=== PATIENT | female | born 1980 | race American Indian/Alaskan Native ===

== ENCOUNTER 2022-01-11 21:43 | Emergency (ER) | payer MEDICAID ==
[2022-01-12 01:01] LABS: Bacteria,Urine 1+ /HPF (Negative); Bilirubin,Urine NEG (Negative); Blood,Urine SM (Negative); Color,Urine Yellow (Yellow); Mucus,Urine FEW /HPF; Protein,Urine <15 mg/dL mg/dL (Negative); Urobilinogen,Urine < 2.0 mg/dL (<2.0)
[2022-01-12] MEDS ORDERED: cefTRIAXone/NS 2 GM/100 ML 2 GM/100 ML BAG IV ONE (01:40)
[2022-01-12] MEDS ORDERED: SODIUM CHLORIDE 0.9% 1000 ML 1,000 ML IV ONE (01:47)
--- NOTE | 2022-01-12 01:48 | Emergency Department Report ---
HPI - General Chief Complaint: Abdominal Pain Time Seen by Provider: 01/12/22 01:21 - HPI HPI: 41-year-old female with history of pulmonary embolism on Eliquis presents complaining of 2 days of dysuria and urinary frequency as well as suprapubic pre ssure. She also reports that she has been having vaginal spotting for the last several months in the form of blood seen on tissue when wiping after urination. Her last known menstrual period was on October 162020. There are no known aggravating or alleviating factors. She has not tried anything for these symptoms. She denies any associated headache, fever, vision change, neck pain, chest pain, shortness of breath, cough, nausea/vomiting, vaginal discharge, significant vaginal bleeding, back pain, hematuria, focal weakness, sensory changes, lower extremity swelling/pain, or any other complaints ED Past Medical Hx - Past Medical History Previous Medical History?: Yes Hx Pulmonary Embolism: Yes (On eliquis) - Medications Home Medications: Home Medications Medication Instructions Recorded Confirmed Last Taken Type Cefpodoxime Proxetil 100 mg PO BID #14 01/12/22 Unknown Rx Phenazopyridine [Pyridium] 100 mg PO TID #6 tab 01/12/22 Unknown Rx ED Review of Systems ROS: Stated complaint: SEVERE ABD PAIN Other details as noted in HPI Comment: All other systems reviewed and negative Constitutional: denies: chills, fever Eyes: denies: eye pain, vision change ENT: denies: throat pain, congestion Respiratory: denies: cough, shortness of breath Cardiovascular: denies: chest pain, palpitations, edema Gastrointestinal: other (suprapubic fullness). denies: abdominal pain, nausea, vomiting, diarrhea, constipation Genitourinary: dysuria, frequency, other (vaginal spotting x several months). denies: hematuria, discharge Musculoskeletal: denies: back pain, joint swelling Skin: denies: rash, lesions Neurological: denies: headache, weakness, numbness Physical Exam - Physical Exam Vital Signs: Vital Signs 01/12/22 01/12/22 01/12/22 00:05 00:44 00:56 Temperature 97.9 F Pulse Rate 75 75 67 Respiratory 15 16 17 Rate Blood Pressure 90/58 108/67 108/67 [Right] O2 Sat by Pulse 100 100 100 Oximetry Physical Exam: GENERAL: Well developed and well nourished. No acute distress HEAD: Normocephalic. No obvious signs of trauma. ENT: Moist mucous membranes. EYES: Extraocular movements are intact. Pupils are equal round and reactive to light bilaterally NECK: Supple. Full ROM is intact. Trachea is midline. LUNGS: Nonlabored breathing. Equal chest rise bilaterally. Clear to auscultation bilaterally. CARDIOVASCULAR: Regular rate and rhythm. No murmurs or rubs. VASCULAR: Cap refill < 2 seconds ABDOMEN: Abdomen is soft and nondistended. There is no significant tenderness, guarding or rebound. SKIN: Skin is warm and dry NEURO: Patient is awake, alert, and oriented. shipping processor II-XII grossly intact. No focal deficits. Normal motor and sensory exam throughout. Normal speech. MUSCULOSKELETAL: No obvious deformities. No significant tenderness. Normal ROM throughout. BACK/SPINE: No costovertebral angle tenderness. ED Course Vital Signs 01/12/22 01/12/22 01/12/22 00:05 00:44 00:56 Temperature 97.9 F Pulse Rate 75 75 67 Respiratory 15 16 17 Rate Blood Pressure 90/58 108/67 108/67 [Right] O2 Sat by Pulse 100 100 100 Oximetry ED Medical Decision Making - Lab Data Result diagrams: 01/12/22 01:44 01/12/22 01:44 - Radiology Data Radiology results: report reviewed - Medical Decision Making 41-year-old female with history of PE on Eliquis presenting with 2 days of dysuria/frequency and suprapubic pressure. On initial assessment she is afebrile and with normal vital signs but with blood pressure of 90/58 which improved to 108/67 on repeat measurement. On physical examination, she is in no acute distress and has no abdominal tenderness and no CVA tenderness. No tenderness in the suprapubic region or bilateral lower quadrants over the next. We will send a full set of labs including and urinalysis and give 1 L of IV fluids. Labs reveal no significant leukocytosis and mild anemia with hemoglobin of 9.2. Kidney function is normal and there is mild hypokalemia with potassium 3.5 which we will replete. Urinalysis reveals findings consistent with urinary tract infection. We will give 1 dose of ceftriaxone. Urine test has come back positive. I have therefore ordered a serum hCG quant and Rh typing as well as OB/pelvic ultrasound. Patient was told about the positive result and the subsequent plan of care and expressed understanding and agreement. Quantitative serum hCG test is negative. Suspect false positive urine test. Nonetheless we will continue with pelvic ultrasound which was ordered. Pelvic ultrasound reveals bilateral ovarian blood flow although the right ovary itself is spared by bowel gas. On repeat assessment at 7:40 PM, the patient is resting comfortably. She reports no significant symptoms during her stay in the emergency room. Given that the patient's symptoms are consistent with urinary tract infection and she has no right lower quadrant or right adnexal tenderness I feel that she is appropriate for discharge on antibiotics with HYDROPONICS WORKER follow-up as needed. The patient herself agrees and wants to go home and then follow-up. She was given strict return precautions. Critical care attestation.: If time is entered above; I have spent that time in minutes in the direct care of this critically ill patient, excluding procedure time. ED Disposition Clinical Impression: UTI (urinary tract infection), Cystitis, Ovarian cyst Disposition: 01 HOME / SELF CARE / HOMELESS Is pt being admited?: No Condition: Stable Instructions: Urinary Tract Infection, Adult, Ovarian Cyst, Abdominal Pain (ED) Additional Instructions: You should follow-up with your primary care doctor or HYDROPONICS WORKER over the next several days. Return to the emergency department for any significant worsening symptoms, significant nonmenstrual vaginal bleeding, high fever, nausea/vomiting, or any other new health concerns. Prescriptions: Cefpodoxime Proxetil 100 mg PO BID #14 Phenazopyridine [Pyridium] 100 mg PO TID #6 tab Referrals: ARLENE MINER MD [Staff Physician] - 3-5 Days [facility] [Provider Group] - 3-5 Days
[2022-01-12 02:11] LABS: Basophils % (Auto) 0.7 % (0.0-1.8); Eosinophils % (Auto) 0.9 % (0.0-4.3); Hemoglobin 9.2 gm/dl (10.1-14.3); Lymphocytes # (Auto) 1.7 K/mm3 (1.2-5.4); Lymphocytes % (Auto) 37.1 % (13.4-35.0); Mean Corpuscular HGB Conc 31 % (30-34); Mean Corpuscular Volume 77 fl (79-97); Monocytes # (Auto) 0.4 K/mm3 (0.0-0.8); Monocytes % (Auto) 9.3 % (0.0-7.3); Platelet Count 397 K/mm3 (140-440); Red Blood Count 3.88 M/mm3 (3.65-5.03); Red Cell Distribution Width 19.2 % (13.2-15.2)
[2022-01-12 02:23] LABS: Alanine Aminotransferase 36 units/L (7-56); Albumin 4.4 g/dL (3.9-5); Blood Urea Nitrogen 11 mg/dL (7-17); Calcium 9.5 mg/dL (8.4-10.2); Hemolysis Index 5
[2022-01-12 02:31] LABS: BUN/Creatinine Ratio 22; Bilirubin,Direct < 0.2 mg/dL (0-0.2)
[2022-01-12 02:49] LABS: HCG Qualitative,Urine Positive (Negative)
[2022-01-12] MEDS ORDERED: POTASSIUM CHLORIDE ER 20 MEQ TAB PO ONE (03:50)
[2022-01-12 04:22] LABS: INR 0.85 (0.87-1.13)
[2022-01-12 04:23] LABS: Partial Thromboplastin Time 27.3 Sec. (24.2-36.6)
[2022-01-12] MEDS ORDERED: IBUPROFEN 600 MG TAB PO ONE (07:09)
[2022-01-12] MEDS ORDERED: PHENAZOPYRIDINE 200 MG TAB PO ONE (07:09)
--- NOTE | 2022-01-12 07:35 | Ultrasound Report ---
ULTRASOUND PELVIS INDICATION / CLINICAL INFORMATION: SPOTTING. TECHNIQUE: Transabdominal. Duplex Color Doppler used: Yes. COMPARISON: None available FINDINGS: UTERUS: The uterus measures 10.3 x 6.4 x 5.9 cm. Endometrial stripe is 19 mm in thickness. RIGHT ADNEXA: Not identified. LEFT ADNEXA: 3.2 x 2.9 x 3.0 cm. Normal color Doppler blood flow. Small left ovarian cysts, the large st measuring 2.2 x 1.4 x 1.8 cm. URINARY BLADDER: No significant abnormality. FREE FLUID: None. ADDITIONAL FINDINGS: None. IMPRESSION: 1. Right ovary not identified secondary to bowel gas. Left ovary demonstrates small simple appearing cysts, the largest measuring 2.2 x 1.4 x 1.8 cm. 2. Bilateral blood flow within the ovaries. 3. Nonspecific minimal thickening of the endometrial stripe. Signer Name: Joselo Gonzales II, MD Signed: 01/12/2022 7:30 AM Workstation Name: [id number]
[2022-01-12 07:44] VITALS: BP 110/77
== END 2022-01-12 08:16 | disposition home or self-care (01) ==
LOC: ED 21:43
DX: N39.0 Urinary tract infection, site not specified (principal); N83.209 Unspecified ovarian cyst, unspecified side
CPT/HCPCS: 36415; 76856; 80048; 80076; 81001; 81025; 83735; 84702; 84703; 85025; 85610; 85730; 86900; 86901; 87086; 96365; 99284; J0696; J7030; Q0162

== ENCOUNTER 2022-03-01 20:24 | Emergency (ER) | payer MEDICAID ==
[2022-03-01 20:43] VITALS: BP 123/86
--- NOTE | 2022-03-01 23:04 | Emergency Department Report ---
<JEFFERSON RIVERS - Last Filed: 03/01/22 23:04> ED Female HPI - General Chief complaint: Vaginal Bleeding Stated complaint: VAGINAL BLEEDING/MISCARRIAGE Time Seen by Provider: 03/01/22 22:00 Source: patient Mode of arrival: Ambulatory Limitations: No Limitations - History of Present Illness Initial comments: 41-year-old female presents to the hospital with complaints of persistent bleeding after miscarriage. 6 days ago on February 23 while in [place] patient miscarried a fully formed fetus. Patient did not receive any care and did not know her gestational age at time of miscarriage. Since miscarriage patient has been using approximately 24 overnight pads a day and having intermittent suprapubic cramping abdominal pain radiating up to her belly and her chest. Patient also has a history of PE/DVT. 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 The second DVT was diagnosed August 2021 with a Covid diagnosis. Patient forgot to bring her Eliquis to [place] and therefore has been noncompliant for about a week and a half. Patient does not complain of calf tenderness, leg edema, pleuritic chest pain, or shortness of breath Patient was here earlier today but left and returned. Her lab results are under her previous visit - Related Data Previous Rx's Medication Instructions Recorded Last Taken Type Cefpodoxime Proxetil 100 mg PO BID #14 01/12/22 Unknown Rx Phenazopyridine [Pyridium] 100 mg PO TID #6 tab 01/12/22 Unknown Rx Allergies Allergy/AdvReac Type Severity Reaction Status Date / Time No Known Allergies Allergy Unverified 01/12/22 00:12 ED Review of Systems Comment: All other systems reviewed and negative ED Past Medical Hx - Past Medical History Hx Pulmonary Embolism: Yes (On eliquis) - Medications Home Medications: Home Medications Medication Instructions Recorded Confirmed Last Taken Type Cefpodoxime Proxetil 100 mg PO BID #14 01/12/22 Unknown Rx Phenazopyridine [Pyridium] 100 mg PO TID #6 tab 01/12/22 Unknown Rx ED Physical Exam - General Limitations: No Limitations - Other Other exam information: General: No acute distress Head: Atraumatic Eyes: normal appearance ENT: Moist mucous membranes Neck: Normal appearance, no midline tenderness Chest: Clear to auscultation bilaterally CV: Regular rate and rhythm Abdomen: Soft, normal bowel sounds, nontender, nondistended, no rebound or guarding Back: Normal inspection Extremity: Normal inspection, full range of motion, no calf tenderness or leg edema Neuro: Alert O x 3, no facial asymmetry, speech clear, no gross motor sensory deficit Psych: Appropriate behavior Skin: No rash ED Course - Consultations Consultation #1: 03/01/22 23:05 case d/w DR Rogers AUTOMOTIVE SERVICE CASHIER on-call. Will call back once ultrasound results to determine if patient requires Cytotec and to rediscuss continuation of Eliquis given history of DVT and PE ED Medical Decision Making - Medical Decision Making Patient has a hemoglobin of 10.2, B+ blood type, and hCG quant less than 2 based on labs from earlier visit today. Patient does not require blood transfusion or RhoGam and does not have any laboratory findings of Ultrasound ordered to rule out retained prior Signed out to my colleague Dr. Schroeder to follow-up with ultrasound report and recontact AUTOMOTIVE SERVICE CASHIER for further directions regarding miscarriage and vaginal bleeding and Eliquis recommendation Critical Care Time: No ED Disposition Clinical Impression: Complete miscarriage Disposition: 01 HOME / SELF CARE / HOMELESS Condition: Good Instructions: Miscarriage, [id number] Additional Instructions: You may start taking your Eliquis the day after tomorrow, March 03. Referrals: ARLENE MINER MD [Staff Physician] - 3-5 Days <MASHA SCHROEDER - Last Filed: 03/02/22 01:19> ED Review of Systems ROS: Stated complaint: VAGINAL BLEEDING/MISCARRIAGE Other details as noted in HPI ED Course Vital Signs 03/01/22 20:41 Temperature 98.9 F Pulse Rate 87 Respiratory 18 Rate Blood Pressure 123/86 O2 Sat by Pulse 99 Oximetry - Reevaluation(s) Reevaluation #1: 03/02/22 01:18 The patient's ultrasound showed a normal endometrial stripe consistent with a complete . I spoke with who said the patient does not need any other medications at this time. He recommended the patient start the Eliquis 1 day from now. The patient knows to come back if any other issues arise and she will follow up with her PCP as needed. Critical care attestation.: If time is entered above; I have spent that time in minutes in the direct care of this critically ill patient, excluding procedure time. ED Disposition Is pt being admited?: No Does the pt Need Aspirin: No
--- NOTE | 2022-03-02 02:14 | Ultrasound Report ---
ULTRASOUND PELVIS INDICATION / CLINICAL INFORMATION: recent miscarriage, heavy vag bleeding. TECHNIQUE: Transabdominal and Transvaginal. Duplex Color Doppler used: Yes. COMPARISON: None available FINDINGS: UTERUS: Present. - Appearance (if present): No significant abnormality. - Size in cm (if present): 1 x 5.7 x 6.1. - Endometrial Complex (if present): No significant abnormality.. Thickness in cm (if measured) = 0.48 - Mass lesions: None. - Additional findings: None. RIGHT ADNEXA: 3.4 cm hemorrhagic cyst Normal color Doppler blood flow. LEFT ADNEXA: No significant ovarian cyst or mass. Normal color Doppler blood flow. URINARY BLADDER: No significant abnormality. FREE FLUID: None. ADDITIONAL FINDINGS: None. IMPRESSION: 1. No acute findings in the uterus. 2. Small right ovarian hemorrhagic cyst. Signer Name: Dimitrios Umaña MD Signed: 03/02/2022 2:10 AM Workstation Name: [id number]
== END 2022-03-02 02:30 | disposition home or self-care (01) ==
LOC: ED 20:24
DX: O03.9 Complete or unspecified spontaneous abortion without complication (principal); I26.99 Other pulmonary embolism without acute cor pulmonale; Z79.899 Other long term (current) drug therapy; Z3A.00 Weeks of gestation of pregnancy not specified
CPT/HCPCS: 36415; 76830; 76856; 76857; 80048; 84702; 85025; 86900; 86901; 99283